=== PATIENT | female | born 1995 | race African-American/Black ===

== ENCOUNTER 2019-01-17 20:13 | Emergency (ER) | payer OTHER ==
[2019-01-17] MEDS ORDERED: ONDANSETRON 4 MG/2 ML VIAL IVPUSH ONE (20:21)
[2019-01-17] MEDS ORDERED: SODIUM CHLORIDE 1,000 ML IV STA (20:21)
--- NOTE | 2019-01-17 20:21 | PDOC ---
Rapid Medical Evaluation Time Seen by Provider: 01/17/19 20:18 Medical Evaluation: 01/17/19 20:20 CC: vomiting. 12 weeks . LMP-10/24 PE: No focal findings Orders: labs, urine, zofran, IVF Patient will proceed to ER for further evaluation. Discharge Disposition - Diagnosis Vomiting affecting - Referrals - Patient Instructions - Post Discharge Activity
[2019-01-17 20:40] VITALS: BP 141/92; PULSE 78; TEMP 98.6; BMI 31.1
[2019-01-17 20:47] LABS: BASO % 0.7 % (0-2.0); EOS % 1.9 % (0-4.5); HEMOGLOBIN 12.7 GM/dL (10.7-15.3); LYMPH % 35.2 % (8-40); MCH 26.5 pg (25.7-33.7); MCHC 32.6 g/dl (32.0-36.0); MEAN CELL VOLUME 81.3 fl (80-96); MEAN PLT VOLUME 7.6 fl (7.5-11.1); MONO % 7.8 % (3.8-10.2); NEUT % 54.4 % (42.8-82.8); PLATELET COUNT 360 K/MM3 (134-434); RDW 13.3 % (11.6-15.6); WHITE BLOOD COUNT 6.2 K/mm3 (4.0-10.0)
[2019-01-17 20:50] LABS: EPI CELLS 7.2 /HPF (0-5/HPF); HYALINE CASTS 17 /lpf (0-8); PH,URINE 6.5 (5.0-8.0); URINE APPEARANCE CLOUDY; URINE BACTERIA 518.5 /hpf (NEGATIVE); URINE BILIRUBIN NEGATIVE (NEGATIVE); URINE COLOR YELLOW; URINE GLUCOSE (UA) NEGATIVE (NEGATIVE); URINE KETONE 4+ (NEGATIVE); URINE LEUK ESTERASE 1+ (NEGATIVE); URINE NITRITE NEGATIVE (NEGATIVE); URINE PROTEIN TRACE (NEGATIVE); URINE WBC 26 /hpf (0-5)
[2019-01-17 21:13] LABS: URINE RBC 3.6 /hpf (0-4)
[2019-01-17 21:38] LABS: ALBUMIN 3.6 g/dl (3.4-5.0); BILIRUBIN,TOTAL 0.4 mg/dL (0.2-1); BLOOD UREA NITROGEN 6.7 mg/dL (7-18); CALCIUM 9.4 mg/dL (8.5-10.1); CREATININE 0.6 mg/dL (0.55-1.3); POTASSIUM 3.6 mmol/L (3.5-5.1); TOT PROT 7.7 g/dl (6.4-8.2)
--- NOTE | 2019-01-17 21:50 | PDOC ---
History of Present Illness - General Chief Complaint: Nausea/Vomiting Stated Complaint: 12 WK PRE/VOMITING Time Seen by Provider: 01/17/19 20:18 - History of Present Illness Initial Comments: Ms. Nichols is a 23 y/o female A1 at 11 weeks with no significant PMH presenting with nausea and vomiting NBNB. Has not been able to keep anything down. Reports associated hot flashes and chills. Denies fever, chest pain, SOB, abdominal pain, dysuria, changes in stool. Denies vaginal spotting or bleeding. She has had nausea with previous pregnancies, but reports that this is worse. Past History - Past Medical History Allergies/Adverse Reactions: Allergies Allergy/AdvReac Type Severity Reaction Status Date / Time No Known Allergies Allergy Verified 01/17/19 20:35 Home Medications: Ambulatory Orders Cephalexin Monohydrate [Keflex -] 500 mg PO BID 7 Days #14 capsule 01/17/19 COPD: No - Psycho Social/Smoking Cessation Hx Smoking History: Never smoked Have you smoked in the past 12 months: No Information on smoking cessation initiated: No Hx Alcohol Use: No Drug/Substance Use Hx: No Review of Systems - Review of Systems Comments:: GENERAL/CONSTITUTIONAL: No fever. Reports chills. No weakness._ HEAD, EYES, EARS, NOSE AND THROAT: No change in vision. No change in hearing. No sore throat._ CARDIOVASCULAR: No chest pain or shortness of breath_ RESPIRATORY: Denies cough, hemoptysis. GASTROINTESTINAL: Reports nausea, vomiting. No diarrhea or constipation._ GENITOURINARY: No dysuria, frequency, or change in urination. No vaginal bleeding or spotting. No abdominal pain. MUSCULOSKELETAL: No joint or muscle swelling or pain. No neck or back pain._ SKIN: No rash_ NEUROLOGIC: No headache, vertigo, loss of consciousness, or change in strength/ sensation._ ENDOCRINE: No increased thirst. No abnormal weight change_ HEMATOLOGIC/LYMPHATIC: No anemia, easy bleeding, or history of blood clots._ ALLERGIC/IMMUNOLOGIC: No hives or skin allergy. *Physical Exam - Vital Signs Last Vital Signs Temp Pulse Resp BP Pulse Ox 98.6 F 78 17 141/92 100 01/17/19 20:15 01/17/19 20:15 01/17/19 20:15 01/17/19 20:15 01/17/19 20:15 - Physical Exam Comments: GENERAL: Awake, alert, and oriented to person/place/time, in no acute distress_ HEAD: No signs of trauma, normocephalic, atraumatic _ EYES: PERRLA, EOMI, sclera anicteric, conjunctiva clear_ ENT: Hearing grossly normal, nares patent, oropharynx clear without exudates. No uvular deviation. Moist mucosa_ NECK: Normal ROM, supple, no lymphadenopathy, JVD, or masses_ LUNGS: No distress, speaks in full sentences, clear to auscultation bilaterally _ HEART: Regular rate and rhythm, normal S1 and S2, no murmurs appreciated, peripheral pulses normal and equal bilaterally._ ABDOMEN: Soft, nontender. No guarding, no rebound. No masses_ EXTREMITIES: Normal inspection, Normal range of motion, no edema. No clubbing or cyanosis_ NEUROLOGICAL: Cranial nerves II through XII grossly intact. Normal speech, normal gait, no focal sensorimotor deficits _ SKIN: Warm, Dry, normal turgor, no rashes or lesions noted_ ED Treatment Course - LABORATORY CBC & Chemistry Diagram: 01/17/19 20:36 01/17/19 20:36 - ADDITIONAL ORDERS Additional order review: Laboratory Results 01/17/19 01/17/19 20:36 20:36 Sodium 136 Potassium 3.6 Chloride 105 Carbon Dioxide 24 Anion Gap 7 L BUN 6.7 L Creatinine 0.6 Est GFR (CKD-EPI)AfAm 148.90 Est GFR (CKD-EPI)NonAf 128.48 Random Glucose 75 Calcium 9.4 Total Bilirubin 0.4 AST 11 L ALT 14 Alkaline Phosphatase 77 Total Protein 7.7 Albumin 3.6 Beta HCG, Quant 80270.7 Urine Color Yellow Urine Appearance Cloudy Urine pH 6.5 Ur Specific [place] 1.035 Urine Protein Trace Urine Glucose (UA) Negative Urine Ketones 4+ H Urine Blood Negative Urine Nitrite Negative Urine Bilirubin Negative Urine Urobilinogen 1.0 Ur Leukocyte Esterase 1+ H Urine WBC (Auto) 26 Urine RBC (Auto) 3.6 Urine Casts (Auto) 17 U Epithel Cells (Auto) 7.2 Urine Bacteria (Auto) 518.5 01/17/19 20:36 RBC 4.80 MCV 81.3 MCHC 32.6 RDW 13.3 MPV 7.6 Neutrophils % 54.4 Lymphocytes % 35.2 Monocytes % 7.8 Eosinophils % 1.9 Basophils % 0.7 Medical Decision Making - Medical Decision Making 01/17/19 21:49 23F no significant PMH A1 presenting with 1 week of vomiting with minimal blood and bile associated with hot flashes and chills. -CBC, CMP -UA, UC -zofran, IV fluids 01/17/19 2300 Pt reassessed after medications. Reports that she is feeling much better. Labs reviewed and wnl. UA shows possible UTI. Tolerating PO well. Will d/c home with Keflex, f/u OB. -rocephin 1g IV Discharge - Discharge Information Problems reviewed: Yes Clinical Impression/Diagnosis: Vomiting affecting Condition: Stable Disposition: HOME - Admission No - Additional Discharge Information Prescriptions: Cephalexin Monohydrate [Keflex -] 500 mg PO BID 7 Days #14 capsule - Follow up/Referral Referrals: Emir Narayan [Primary Care Provider] - - Patient Discharge Instructions Patient Printed Discharge Instructions: DI for -- Discomforts and Remedies, DI for Nausea -- Adult, DI for Vomiting -- Adult Additional Instructions: Please take Keflex twice per day for 1 week. Please make a follow up appointment with your OBGYN for your UTI. If you experience any new, worsening, or concerning symptoms, including severe nausea/vomiting, fever, chills, abdominal pain, vaginal bleeding, or any other concerns, please return to the emergency department. - Post Discharge Activity
[2019-01-17] MEDS ORDERED: SODIUM CHLORIDE 0.9% 1000 ML INFUS.BAG IV ONE (21:54)
[2019-01-17] MEDS ORDERED: CEFTRIAXONE 1 GM in DEXTROSE 5%-WATER - 100 ML IVPB ONE (21:54)
--- NOTE | 2019-01-17 22:31 | PDOC ---
Documentation entered by Harriet Lawrence SCRIBE, acting as scribe for Mary Tao DO. Mary Tao, DO: This documentation has been prepared by the Howard kevin Adrianna, SCRIBE, under my direction and personally reviewed by me in its entirety. I confirm that the documentation accurately reflects all work, treatment, procedures, and medical decision making performed by me. Attending Attestation - Resident Resident Name: Adrian Davis - ED Attending Attestation I have performed the following: I have examined & evaluated the patient, The case was reviewed & discussed with the resident, I agree w/resident's findings & plan, Exceptions are as noted - HPI HPI: The patient is a 23 year old female, A1 currently at ~11 weeks gestation, who presents to the ED for evaluation of nausea and vomit. Patient complains of multiple episodes of nausea and NBNB vomit. She notes she has been unable to keep anything down at this time. Patient endorses associated hot flashes, chills , and dehydration. She notes she has had nausea with prior pregnancies, but reports this is significantly worse. Denies any vaginal symptoms. Allergies: NKA, NKDA Surgical History: None reported Social History: Denies EtOH, tobacco, or illicit drug use PCP: Dr. Narayan - Physicial Exam PE: Constitutional: +Discheveled. +Foul-smelling. Awake, alert, oriented. No acute distress. Non-toxic appearing. Head: Normocephalic. Atraumatic Eyes: PERRL. EOMI. Conjunctivae are not pale. ENT: +Dry mucous membranes. Posterior pharynx without exudates or erythema. Uvula midline. Neck: Supple. Full ROM. No lymphadenopathy. Cardiovascular: Regular rate. Regular rhythm. S1, S2 regular. Distal pulses are 2+ and symmetric. Pulmonary/Chest: No evidence of respiratory distress. Clear to auscultation bilaterally No wheezing, rales or rhonchi. Abdominal: Soft and nondistended. There is no tenderness. No rebound, guarding or rigidity. No organomegaly. No palpable masses. Good bowel sounds. Back: No CVA tenderness. Musculoskeletal: No edema. No cyanosis. No clubbing. Full range of motion in all extremities. Nocalf tenderness. Radial/pedal pulses are intact and 2+ bilaterally Skin: Skin is warm and dry. No petechiae. No purpura. Neurological: Alert and oriented to person, place, and time. Cranial nerves II -XII are grossly intact. Normal speech. Strength is grossly symmetric. No sensory deficits. Psychiatric: Good eye contact. Normal interaction, affect and behavior. - Medical Decision Making 01/17/19 22:27 I, Dr. Mary Tao, DO, attest that this document has been prepared under my direction and personally reviewed by me in its entirety. I further attest, that it accurately reflects all work, treatment, procedures and medical decision -making performed by me. a/p: 23yo female at around 11 weeks gestation with n/v this week -denies f/c -no abd pain -states unable to tolerate po liquids or solids -states she feels dehydrated -labs sent from [facility] reviewed -pt with a uti and dehydration -denies vaginal complaints -will hydrate, abx -POCUS shows live IUP at 11w2d with FHR 173 -will monitor and reassess 01/17/19 22:53 pt has tolerated po intake Discharge - Discharge Information Problems reviewed: Yes Clinical Impression/Diagnosis: Vomiting affecting Condition: Stable Disposition: HOME - Admission No - Additional Discharge Information Prescriptions: Cephalexin Monohydrate [Keflex -] 500 mg PO BID 7 Days #14 capsule - Follow up/Referral Referrals: Emir Narayan [Primary Care Provider] - - Patient Discharge Instructions Patient Printed Discharge Instructions: DI for Nausea -- Adult, DI for Vomiting -- Adult, DI for -- Discomforts and Remedies Additional Instructions: Please take Keflex twice per day for 1 week. Please make a follow up appointment with your OBGYN for your UTI. If you experience any new, worsening, or concerning symptoms, including severe nausea/vomiting, fever, chills, abdominal pain, vaginal bleeding, or any other concerns, please return to the emergency department. - Post Discharge Activity
[2019-01-17] MEDS ORDERED: ONDANSETRON 4 MG/2 ML VIAL ONE (22:47)
[2019-01-17] MEDS ORDERED: CEFTRIAXONE 1 GM/50 ML BAG ONE (22:48)
== END 2019-01-17 23:36 | disposition home or self-care (01) ==
LOC: JER 20:13
PROC: 3E03329 Introduction of Other Anti-infective into Peripheral Vein, Percutaneous Approach (ICD-10-PCS; principal; 2019-01-17)
PROC: 3E033GC Introduction of Other Therapeutic Substance into Peripheral Vein, Percutaneous Approach (ICD-10-PCS; 2019-01-17)
DX: O26.891 Other specified pregnancy related conditions, first trimester (principal); O21.0 Mild hyperemesis gravidarum; O23.41 Unspecified infection of urinary tract in pregnancy, first trimester; Z3A.11 11 weeks gestation of pregnancy
CPT/HCPCS: 36415; 76815; 80053; 81003; 84702; 85025; 87086; 96365; 96375; 99282-25; J7030

== ENCOUNTER 2019-02-19 21:23 | Emergency (ER) | payer OTHER ==
[2019-02-19 21:48] VITALS: BMI 33.6
--- NOTE | 2019-02-19 22:10 | PDOC ---
History of Present Illness - General Chief Complaint: Pain, Acute Stated Complaint: ABD PAIN Time Seen by Provider: 02/19/19 22:08 History Source: Patient Exam Limitations: No Limitations - History of Present Illness Initial Comments: 02/19/19 22:10 Vance Nichols is a 23F @17 weeks presenting with new onset abdominal pain. Patient reports spending the whole day yesterday reclining in bed, when she began having LLQ sharp pain that has slowly gotten worse, non-radiating. First time experiencing this pain, not associated with nausea and vomiting, no constipation or diarrhea. Denies fever/chills, chest pain, SOB, WHIPPLE, urinary sx, dizziness, weakness, able to walk. Denies vaginal bleeding/discharge. Has not had OBGYN care since beginning of . Has not had any follow-up ultrasounds. Has missed multiple appointments at [facility]. Last in ED one month ago for nausea/vomiting, treated with meds/fluids, found to have UTI and sent home with Keflex, which patient says was not sent and she did not take. No other PMH or medications taken. No prior abd surgeries. Previous births by without complications. Past History - Past Medical History Allergies/Adverse Reactions: Allergies Allergy/AdvReac Type Severity Reaction Status Date / Time No Known Allergies Allergy Verified 02/19/19 21:41 Home Medications: Ambulatory Orders Cephalexin Monohydrate [Keflex -] 500 mg PO BID 7 Days #14 capsule 01/17/19 Miconazole Nitrate [Monistat-7] 100 mg PV HS 7 Days #7 supp.vag 02/19/19 Cephalexin Monohydrate [Keflex -] 500 mg PO BID #14 capsule 02/20/19 COPD: No - Psycho Social/Smoking Cessation Hx Smoking History: Never smoked Have you smoked in the past 12 months: No Hx Alcohol Use: No Drug/Substance Use Hx: No Review of Systems - Review of Systems Able to Perform ROS?: Yes Constitutional: No: Symptoms Reported HEENTM: No: Symptoms Reported Respiratory: Yes: Cough Cardiac (ROS): No: Symptoms Reported ABD/GI: Yes: Abdominal cramping. No: Constipated, Diarrhea, Nausea, Vomiting : No: Symptoms Reported Musculoskeletal: Yes: Back Pain Integumentary: No: Symptoms Reported Neurological: No: Symptoms reported Endocrine: No: Symptoms Reported Hematologic/Lymphatic: No: Symptoms Reported All Other Systems: Reviewed and Negative *Physical Exam - Vital Signs Last Vital Signs Temp Pulse Resp BP Pulse Ox 98.2 F 67 16 137/72 99 02/19/19 21:44 02/19/19 21:44 02/19/19 21:44 02/19/19 21:44 02/19/19 21:44 - Physical Exam General Appearance: Yes: Nourished, Appropriately Dressed, Apparent Distress, Obese HEENT: positive: EOMI, VARINDER, Normal Voice, Symmetrical, Pharynx Normal. negative: Scleral Icterus (R), Scleral Icterus (L), Pharyngeal Erythema, Tonsillar Exudate, Tonsillar Erythema Neck: positive: Trachea midline, Normal Thyroid, Supple. negative: Tender, Rigid, Lymphadenopathy (R), Lymphadenopathy (L) Respiratory/Chest: positive: Lungs Clear, Normal Breath Sounds. negative: Chest Tender, Respiratory Distress, Accessory Muscle Use, Crackles, Rales, Rhonchi, Stridor, Wheezing Cardiovascular: positive: Regular Rhythm, Regular Rate. negative: Edema, Murmur Female Pelvic Exam: positive: normal external exam, cervical os closed, normal adnexa, discharge (cottage cheese), other (poor hygiene). negative: CMT, lesions, adnexal tenderness Gastrointestinal/Abdominal: positive: Normal Bowel Sounds, Tender (LLQ, +rebound ), Soft, Protuberent. negative: Flat, Organomegaly, Pulsatile Mass Musculoskeletal: positive: Normal Inspection. negative: CVA Tenderness, Vertebral Tenderness Extremity: positive: Normal Capillary Refill, Normal Inspection, Normal Range of Motion, Tender Integumentary: positive: Normal Color, Dry, Warm Neurologic: positive: Fully Oriented, Alert, Normal Mood/Affect, Normal Response ED Treatment Course - LABORATORY CBC & Chemistry Diagram: 02/19/19 22:55 02/19/19 22:55 Medical Decision Making - Medical Decision Making 02/19/19 22:10 Vnace Nichols is a 23F @17 weeks presenting with new onset abdominal pain. Given that patient has not had good f/u, was diagnosed with UTI and did not take medications, and has new onset LLQ abd pain, concern high for uterine pathology vs. ovarian pathology vs. STI vs. UTI/pyelo vs. colitis vs. diverticulitis. Pelvic exam shows cottage cheese discharge consistent with yeast infection. Evaluating via: CMP CBC Lipase UA/UC US 02/19/19 23:48 Labs notable for: - CMP unremarkable - CBC unremarkable - UA has trace LE and +bacteria consistent with UTI US shows placenta previa with IUP at 16 weeks 6 days, FHR WNL. Stable to be discharged home with OBGYN f/u for repeat US and Keflex for UTI. Giving Monistat for likely yeast infection as cause of abdominal discomfort. Discharge - Discharge Information Problems reviewed: Yes Clinical Impression/Diagnosis: Abdominal pain during Qualifiers: Trimester: second trimester Qualified Code(s): O26.892 - Other specified related conditions, second trimester Condition: Stable Disposition: HOME - Additional Discharge Information Prescriptions: Cephalexin Monohydrate [Keflex -] 500 mg PO BID #14 capsule Miconazole Nitrate [Monistat-7] 100 mg PV HS 7 Days #7 supp.vag - Follow up/Referral - Patient Discharge Instructions Patient Printed Discharge Instructions: DI for Vaginal Yeast Infection Additional Instructions: Today you were evaluated for abdominal pain during . Your blood labs do not show infection, anemia, or electrolyte problems as a cause of your pain. Your urine shows you have an infection that needs treatment. Please remember to take this medication, or else your may be threatened. Your ultrasound shows a normal at 16 weeks 6 days, but your placenta may be blocking the opening of your uterus, and you need another ultrasound to confirm this. You have some evidence of a yeast infection, and we have sent medication to treat this as discussed. Your pain is likely a normal pain caused by , and you can take Tylenol for pain. Avoid Motrin or Aleve as this is unsafe for . Please follow-up with your OBGYN in the next week for a more thorough evaluation. If you experience worsening pain, nausea, vomiting, chest pain, fever, SOB, or any other new or concerning symptoms, please return to the emergency room. - Post Discharge Activity
--- NOTE | 2019-02-19 22:36 | PDOC ---
Documentation entered by Dacia Cormier SCRIBE, acting as scribe for Kristi Akhtar MD. Kristi Akhtar MD: This documentation has been prepared by the Genia kevin Nirvannie, SCRIBE, under my direction and personally reviewed by me in its entirety. I confirm that the documentation accurately reflects all work, treatment, procedures, and medical decision making performed by me. Attending Attestation - Resident Resident Name: Rodriguez Vazquez - ED Attending Attestation I have performed the following: I have examined & evaluated the patient, The case was reviewed & discussed with the resident, I agree w/resident's findings & plan, Exceptions are as noted - HPI HPI: 02/20/19 01:54 this 23 yo female missed multiple visits with her memorial designer and had some c/o lower pelvic discomfort - Physicial Exam PE: 02/20/19 01:56 wnwd 23 yo female presents for some pelvic discomfort head ncat lungs cta b/l cvs [id number] abd no rebound,no guarding skin warm and dry I agree with Dr Rodriguez Vazquez's physical exam neuro axox3 ,ambulatory - Medical Decision Making 02/20/19 01:59 pelvic US reveals SL IUP of 16 weeks Pt also found to have yeast infection and Monistat vag suppositories prescribed plan continue care with her memorial designer
[2019-02-19 23:17] LABS: BASO % 0.7 % (0-2.0); EOS % 2.1 % (0-4.5); HEMOGLOBIN 11.7 GM/dL (10.7-15.3); LYMPH % 42.2 % (8-40); MCH 26.2 pg (25.7-33.7); MCHC 32.6 g/dl (32.0-36.0); MEAN CELL VOLUME 80.3 fl (80-96); MEAN PLT VOLUME 7.7 fl (7.5-11.1); MONO % 7.9 % (3.8-10.2); NEUT % 47.1 % (42.8-82.8); PLATELET COUNT 336 K/MM3 (134-434); RBC 4.49 M/mm3 (3.60-5.2); RDW 12.8 % (11.6-15.6); WHITE BLOOD COUNT 7.8 K/mm3 (4.0-10.0)
[2019-02-19 23:32] VITALS: BP 116/71; PULSE 83; TEMP 97.7
[2019-02-19 23:44] LABS: ALBUMIN 3.2 g/dl (3.4-5.0); BILIRUBIN,TOTAL 0.2 mg/dL (0.2-1); BLOOD UREA NITROGEN 6.9 mg/dL (7-18); CALCIUM 9.1 mg/dL (8.5-10.1); CREATININE 0.5 mg/dL (0.55-1.3); POTASSIUM 3.7 mmol/L (3.5-5.1); TOT PROT 7.2 g/dl (6.4-8.2)
[2019-02-20 00:10] LABS: EPI CELLS 15.2 /HPF (0-5/HPF); HYALINE CASTS 11 /lpf (0-8); URINE APPEARANCE CLEAR; URINE BACTERIA 410.4 /hpf (NEGATIVE); URINE BILIRUBIN NEGATIVE (NEGATIVE); URINE COLOR YELLOW; URINE GLUCOSE (UA) NEGATIVE (NEGATIVE); URINE KETONE 3+ (NEGATIVE); URINE LEUK ESTERASE TRACE (NEGATIVE); URINE NITRITE NEGATIVE (NEGATIVE); URINE PROTEIN TRACE (NEGATIVE); URINE RBC 3 /hpf (0-4); URINE WBC 17 /hpf (0-5)
== END 2019-02-20 00:27 | disposition home or self-care (01) ==
LOC: JER 21:23
DX: O26.892 Other specified pregnancy related conditions, second trimester (principal); Z3A.17 17 weeks gestation of pregnancy
CPT/HCPCS: 36415; 76801-TC; 80053; 81003; 83690; 83735; 85025; 87086; 99283-25